=== PATIENT | female | born 1970 | race Caucasian/White ===

== ENCOUNTER 2019-02-22 11:59 | Emergency (ER) | payer OTHER ==
[~2019-02-22] VITALS: Ht 162.6 cm; Wt 65.8 kg
[~2019-02-22 11:59] MED LIST: ACEBUTCAFT PO; CODBUTACEC PO; Cyclobenzaprine5 MG PO; FAMO20 PO; HYDR1TAB94 PO; IBUP400 PO; LORA10 PO; NAPR500 PO; Norco 5-325 Ta1 EACH PO; TRAM50 PO; TRAZ50 PO
[2019-02-22] MEDS ORDERED: ALPR1 (12:24)
[2019-02-22] MEDS ORDERED: MIRT15 (12:24)
== END 2019-02-22 13:45 | disposition home or self-care (01) ==
LOC: ER 11:59
DX: S40.011A Contusion of right shoulder, initial encounter (principal); S50.11XA Contusion of right forearm, initial encounter; S50.01XA Contusion of right elbow, initial encounter; F32.9 Major depressive disorder, single episode, unspecified; F17.210 Nicotine dependence, cigarettes, uncomplicated; Z88.8 Allergy status to other drugs, medicaments and biological substances; Z79.899 Other long term (current) drug therapy; W01.10XA Fall on same level from slipping, tripping and stumbling with subsequent striking against unspecified object, initial encounter
CPT/HCPCS: 73030; 73080